=== PATIENT | male | born 1975 | race Caucasian/White ===

== ENCOUNTER 2017-03-28 21:12 | Emergency (ER) | payer MEDICAID ==
[~2017-03-28] VITALS: Ht 170.2 cm; Wt 93.0 kg
[2017-03-28 21:20] VITALS: BP 132/79
--- NOTE | 2017-03-28 22:11 | NUR ---
PT TAKEN TO BED 3
--- NOTE | 2017-03-28 22:15 | NUR ---
41Y M BIB FAMILY C/O RIGHT FLANK PAIN X 10 DAYS WITH DIARRHEA ALSO X 10 DAYS. PT DENIES ANY VOMIT OR NAUSEA, SOB, CP AT THE MOMENT. PT STATES HE HAD HIS APPENDIX REMOVED 6 YEARS AGO. PT ALSO REQUEST ER MD TO LOOK AT RIGHT FLANK, PT STATES THERE IS A HARD LUMP, NO PAIN JUST MILD DISCOMFORT. PT AAOX4, BREATHING IS UNLABORED AND CLEAR BILAT. AB IS SOFT, ROUND, AND TENDER TO TOUCH. PT STATES HE WAS CONSTIPATED BUT DID HAVE A GOOD BOWEL MOVEMENT TODAY.
--- NOTE | 2017-03-28 22:52 | NUR ---
Dr. Nichols evaluating patient at bedside.
[2017-03-28] MEDS ORDERED: KETOROLAC 30 MG/ML VIAL IM ONE (23:00)
--- NOTE | 2017-03-28 23:10 | NUR ---
Ultrasound at bedside.
[2017-03-28 23:33] LABS: HEMATOCRIT 48.2 % (36-52); HEMOGLOBIN 16.1 g/dL (12.0-18.0); MEAN CORPUSCULAR HEMOGLOBIN 29 pg (27-31); MEAN CORPUSCULAR HGB CONC 33 g/dL (33-37); MEAN CORPUSCULAR VOLUME 85 fL (80-94); PLATELET COUNT (AUTO) 201 K/uL (140-450); RED BLOOD CELL COUNT(AUTO) 5.66 MIL/uL (4.20-6.10); WHITE BLOOD COUNT (AUTO) 6.6 K/uL (4.8-10.8)
[2017-03-28 23:34] LABS: BASOPHILS % (AUTO) 4.3 % (0.0-2.0); EOSINOPHILS # (AUTO) 0.2 K/uL (0-0.4); EOSINOPHILS % (AUTO) 2.9 % (0.0-4.0); LYMPHOCYTES # (AUTO) 3.2 K/uL (2.0-11.5); LYMPHOCYTES % (AUTO) 48.7 % (20.5-51.1); MONOCYTES # (AUTO) 0.6 K/uL (0.8-1.0); MONOCYTES % (AUTO) 9.3 % (1.7-9.3); NEUTROPHILS # (AUTO) 2.3 K/uL (1.8-7.7); NEUTROPHILS % (AUTO) 34.8 % (42.2-75.2)
[2017-03-28 23:35] LABS: ANION GAP 13.5 (8-16); BASOPHILS # (AUTO) 0.3 K/uL (0.00-0.22); CALCIUM 8.6 mg/dL (8.5-10.1); CARBON DIOXIDE 27.1 mmol/L (21-32); POTASSIUM 3.6 mmol/L (3.5-5.1)
[2017-03-28 23:39] LABS: TOTAL BILIRUBIN 0.3 mg/dL (0.0-1.0)
[2017-03-28 23:40] LABS: ALBUMIN 4.2 g/dL (3.4-5.0); TOTAL PROTEIN, SERUM 8.1 g/dL (6.4-8.2)
[2017-03-28 23:41] LABS: APPEARANCE,URINE CLEAR (CLEAR); BLOOD, URINE TRACE (NEGATIVE); COLOR,URINE YELLOW (YELLOW); PROTEIN,URINE NEGATIVE (NEGATIVE); UGLUCOSE NEGATIVE (NEGATIVE)
[2017-03-28 23:42] LABS: BACTERIA,URINE None Seen /HPF (None Seen); BILIRUBIN,URINE NEGATIVE (NEGATIVE); LEUKOCYTE ESTERASE ,URINE NEGATIVE (NEGATIVE); NITRITE, URINE NEGATIVE (NEGATIVE); RBC,URINE 0-3 /HPF (0-5); SQUAMOUS EPITHELIAL CELL,UR 0-3 /LPF (0-3 (FEW)); UROBILINOGEN,URINE NEGATIVE EU/dL (0.2 - 1); WBC,URINE NONE SEEN /HPF (0-5)
[2017-03-29 01:23] VITALS: BP 122/72
--- NOTE | 2017-03-29 01:24 | NUR ---
Patient discharged with v/s stable. Written and verbal after care instructions given and explained. Patient alert, oriented and verbalized understanding of instructions. Ambulatory with steady gait. All questions addressed prior to discharge. ID band removed. Patient advised to follow up with PMD. Rx of BENTYL 20MG given. Patient educated on indication of medication including possible reaction and side effects. Opportunity to ask questions provided and answered.
== END 2017-03-29 01:24 | disposition home or self-care (01) ==
LOC: MED 21:12
DX: R10.9 Unspecified abdominal pain (principal)
CPT/HCPCS: 36415; 76705; 80053; 81001; 83690; 85025; 96372; 99285; J1885; Q0092

== ENCOUNTER 2018-05-10 12:55 | Emergency (ER) | payer MEDICAID ==
[~2018-05-10] VITALS: Ht 170.2 cm; Wt 93.0 kg
[2018-05-10 12:56] VITALS: BP 121/85
--- NOTE | 2018-05-10 13:00 | NUR ---
PT WALKED TO BED 11 AFTER TRIAGED.
--- NOTE | 2018-05-10 13:14 | NUR ---
42 YEAR OLD MALE BROUGHT HIMSELF TO THE ED TODAY DUE TO REDDENED RIGHT EYE. ON Sunday05/06/18 PT STATES THAT HE THOUGHT HE HAD A PIMPLE BUT IT IS NOT GOING AWAY AND WOULD LIKE TO GET IT CHECKED OUT. NO OTHER COMPLAINS. LUNGS CLEAR BILATERALLY.DENIES ANY HX OF THIS PROBLEM. STATES THAT IT IS A DULL PAIN IN THE EYE BUT IT DOES NOT AFFECT HIS VISION OR ANYTHING.
--- NOTE | 2018-05-10 14:38 | NUR ---
PT D/C HOME IN PERSONAL VEHICLE WITH . D/C HOME WITH 2 MEDICATION DOXYCYCLINE 100MG CAP AND GENTAMYCIN OPTHALMAIC OINTMENT. PT EDUCATIONED REVIEWED, QUESTIONS ASKED AND ANSWERWED. PT DENIES ALL QUESTIONS AT THIS TIME.
[2018-05-10 14:43] VITALS: BP 121/85
== END 2018-05-10 14:38 | disposition home or self-care (01) ==
LOC: MED 12:55
DX: H00.12 Chalazion right lower eyelid (principal)
CPT/HCPCS: 99283

== ENCOUNTER 2023-04-06 08:47 | Emergency (ER) | payer MEDICAID ==
[~2023-04-06] VITALS: Ht 170.2 cm; Wt 99.8 kg
[2023-04-06 09:11] VITALS: PULSE 111; RESP 20; TEMP 98; O2SAT 97
--- NOTE | 2023-04-06 10:05 | NUR ---
BROUGHT TO ED CHAIR Brock MD AT TO EXAMINE PT
--- NOTE | 2023-04-06 10:12 | NUR ---
TAMIKA SWAB SENT TO LAB
[2023-04-06] MEDS ORDERED: BENZ-300 PO (10:21)
[2023-04-06] MEDS ORDERED: AZIT250T4 PO (10:21)
[2023-04-06] MEDS ORDERED: ACET-10509 PO (10:21)
[2023-04-06] MEDS ORDERED: [UNRECOGNIZED DRUG - CODE] PO (10:21)
--- NOTE | 2023-04-06 10:31 | NUR ---
PER OK TO DC PT , TAMIKA STILL PENDING
--- NOTE | 2023-04-06 10:33 | NUR ---
Patient discharged with v/s stable. Written and verbal after care instructions given and explained. Patient alert, oriented and verbalized understanding of instructions. Ambulatory with to home. All questions addressed prior to discharge. ID band removed. Patient advised to follow up with PMD. Rx of CEPACHOL, TYLENOL, AZITHROMAX ,TUSSIN DM given. Patient educated on indication of medication including possible reaction and side effects. Opportunity to ask questions provided and answered.
== END 2023-04-06 10:33 | disposition home or self-care (01) ==
LOC: MED 08:47
DX: R05.9 Cough, unspecified (principal); R09.89 Other specified symptoms and signs involving the circulatory and respiratory systems; R50.9 Fever, unspecified; Z79.899 Other long term (current) drug therapy; Z20.822 Contact with and (suspected) exposure to COVID-19
CPT/HCPCS: 71045; 99284